=== PATIENT | male | born 1960 | race African-American/Black ===

== ENCOUNTER 2023-12-30 11:06 | Emergency (ER) | payer SELFPAY ==
[~2023-12-30] VITALS: Ht 185.4 cm; Wt 75.7 kg
[2023-12-30 11:13] VITALS: TEMP 98.6
[2023-12-30] MEDS ORDERED: FAMOTIDINE/PF INJ 20 MG/2 ML VIAL IV ONE (11:32)
[2023-12-30] MEDS: FAMOTIDINE/PF INJ 20 MG/2 ML VIAL IV ONE (11:35)
[2023-12-30 11:37] LABS: BASOPHILS % (AUTO) 1.2 % (0.0-2.0); EOSINOPHILS # (AUTO) 0.1 K/uL (0.0-0.7); EOSINOPHILS % (AUTO) 2.5 % (0.0-6.0); HEMATOCRIT 45 % (39-51); HEMOGLOBIN 14.7 g/dL (13.5-17.5); LYMPHOCYTES # (AUTO) 1.6 K/uL (0.8-4.8); LYMPHOCYTES % (AUTO) 41.4 % (20.0-44.0); MEAN CORPUSCULAR HEMOGLOBIN 28 PG (26.0-33.0); MEAN CORPUSCULAR HGB CONC 33 g/dl (31.0-36.0); MEAN CORPUSCULAR VOLUME 86 fL (80-96); MONOCYTES # (AUTO) 0.3 K/uL (0.1-1.30); MONOCYTES % (AUTO) 8.8 % (2.0-12.0); NEUTROPHILS # (AUTO) 1.8 K/uL (1.8-8.9); NEUTROPHILS % (AUTO) 46.1 % (43.0-81.0); PLATELET COUNT (AUTO) 193 K/uL (150-450); RED BLOOD CELL COUNT(AUTO) 5.29 MIL/uL (4.5-6.0); RED CELL DISTRIBUTION WIDTH 13.8 % (11.5-15.0); WHITE BLOOD COUNT (AUTO) 3.9 K/uL (4.3-11.0)
[2023-12-30 11:48] LABS: CALCIUM, SERUM 9.2 mg/dL (8.5-10.1); CARBON DIOXIDE 32 mmol/L (21-32); CHLORIDE 105 mmol/L (98-107); GLUCOSE 103 mg/dL (74-106); SODIUM SERUM 143 mmol/L (136-145); UREA NITROGEN, BLOOD 9 mg/dL (7-18)
[2023-12-30 12:02] LABS: ALANINE AMINOTRANSFERASE 50 U/L (12-78); ALBUMIN 4.1 g/dL (3.4-5.0); ALKALINE PHOSPHATASE 95 U/L (46-116); ASPARTATE AMINOTRANSFERASE 27 U/L (15-37); BILIRUBIN,DIRECT 0.2 mg/dL (0.0-0.2); BILIRUBIN,TOTAL 0.8 mg/dL (0.2-1.0); LIPASE 75 U/L (16-77); TOTAL PROTEIN, SERUM 7.7 g/dL (6.4-8.2)
[2023-12-30] MEDS ORDERED: MAG HYDROX/AL HYDROX/SIMETH 30 ML UDC ONE (12:45)
[2023-12-30] MEDS ORDERED: LIDOCAINE VISCOUS 2% UD 15 ML UDC ONE (12:46)
[2023-12-30] MEDS: LIDOCAINE VISCOUS 2% UD 15 ML UDC MM ONE (12:52)
[2023-12-30] MEDS: MAG HYDROX/AL HYDROX/SIMETH 30 ML UDC PO ONE (12:52)
[2023-12-30 13:03] LABS: APPEARANCE,URINE Clear (CLEAR); BILIRUBIN,URINE Negative (NEGATIVE); BLOOD, URINE Negative Ery/uL (NEGATIVE); COLOR,URINE YELLOW (YELLOW); KETONES,URINE Negative (NEGATIVE); LEUKOCYTE ESTERASE ,URINE Negative (NEGATIVE); NITRITE, URINE Negative (NEGATIVE); PH,URINE 6.5 (5.0-8.0); PROTEIN,URINE Negative (NEGATIVE); UGLUCOSE Negative (NEGATIVE); UROBILINOGEN,URINE 0.2 EU/dL (0.2)
[2023-12-30] MEDS ORDERED: FAMO-131 PO (14:21)
[2023-12-30 14:38] VITALS: BP 149/99; O2SAT 99
== END 2023-12-30 14:38 | disposition home or self-care (01) ==
LOC: ER 11:12
DX: N20.0 Calculus of kidney (principal); R10.13 Epigastric pain; R94.31 Abnormal electrocardiogram [ECG] [EKG]; I10 Essential (primary) hypertension
CPT/HCPCS: 99285; 74176; 96374; 93005 ×2; 85025; 80048; 83690; 80076; 81003; 36415; 84484 ×2; J3490

== ENCOUNTER 2025-05-19 12:18 | Emergency (ER) | payer MEDICAID ==
[~2025-05-19] VITALS: Ht 185.4 cm; Wt 79.4 kg
[~2025-05-19 12:18] MED LIST: FAMO-131 PO
[2025-05-19 13:31] LABS: PLATELET COUNT (AUTO) 193 K/uL (150-450); RED BLOOD CELL COUNT(AUTO) 5.68 MIL/uL (4.5-6.0); RED CELL DISTRIBUTION WIDTH 13.5 % (11.5-15.0); WHITE BLOOD COUNT (AUTO) 3.6 K/uL (4.3-11.0)
[2025-05-19 13:37] LABS: CALCIUM, SERUM 9.7 mg/dL (8.5-10.1); CREATININE 1.2 mg/dL (0.6-1.3); SODIUM SERUM 144 mmol/L (136-145); UREA NITROGEN, BLOOD 10 mg/dL (7-18)
[2025-05-19 13:42] LABS: APPEARANCE,URINE CLEAR (CLEAR); BLOOD, URINE NEGATIVE Ery/uL (NEGATIVE); LEUKOCYTE ESTERASE ,URINE NEGATIVE (NEGATIVE); NITRITE, URINE NEGATIVE (NEGATIVE); UGLUCOSE NEGATIVE (NEGATIVE)
[2025-05-19] MEDS: IV NS 0.9% 1,000 ML BAG IV ONE (13:42)
[2025-05-19 13:44] LABS: ASPARTATE AMINOTRANSFERASE 30 U/L (15-37); TOTAL PROTEIN, SERUM 7.5 g/dL (6.4-8.2)
[2025-05-19] MEDS ORDERED: FAMOTIDINE (20 MG) 20 MG TABLET ONE (14:34)
[2025-05-19] MEDS ORDERED: MAG HYDROX/AL HYDROX/SIMETH 30 ML UDC ONE (14:34)
[2025-05-19] MEDS: MAG HYDROX/AL HYDROX/SIMETH 30 ML UDC PO ONE (14:37)
[2025-05-19] MEDS: FAMOTIDINE (20 MG) 20 MG TABLET PO ONE (14:37)
[2025-05-19] MEDS ORDERED: OMEP20TA20 PO (15:03)
[2025-05-19 15:16] VITALS: BP 154/87; TEMP 98; O2SAT 99
== END 2025-05-19 15:16 | disposition home or self-care (01) ==
LOC: ER 12:22
DX: R10.13 Epigastric pain (principal); I10 Essential (primary) hypertension; Z79.899 Other long term (current) drug therapy
CPT/HCPCS: 99285; 74176; 96360; 93005; 85025; 80048; 87086; 83690; 80076; 81003; 36415; 84484; J7030